=== PATIENT | female | born 1985 | race Caucasian/White ===

== ENCOUNTER 2018-10-15 18:11 | Emergency (ER) | payer OTHER ==
--- NOTE | 2018-10-15 18:34 | UC ---
Abdominal Pain Female HPI - HPI Summary HPI Summary: 32 yo female presents with RLQ pain. She tells me that this morning she woke with sharp RLQ pain and had 1 episode of vomiting. She went back to bed and slept for a few more hours and when she woke up her pain was better, but still had a dull ache in her RLQ. This ache has persisted to now. She has also felt nauseous all day, but did eat lunch and has had no more episodes of vomiting. Had a BM today that was regular - did not change pain. Denies fever, chills, recent illness, SOB, chest pain, dysuria, vaginal bleeding or discharge. - History of Current Complaint Chief Complaint: UCAbdominalPain Stated Complaint: ABDOMINAL PAIN Time Seen by Provider: 10/15/18 18:33 Hx Obtained From: Patient Hx Last Menstrual Period: IUD Onset/Duration: Sudden Onset Severity Initially: Mild Severity Currently: Mild Pain Intensity: 2 Pain Scale Used: 0-10 Numeric Allergies/Adverse Reactions: Allergies Allergy/AdvReac Type Severity Reaction Status Date / Time No Known Allergies Allergy Verified 10/15/18 18:31 Home Medications: Home Medications Levothyroxine TAB* [Synthroid TAB*] 88 mcg PO DAILY PRN 10/15/18 [History Confirmed 10/15/18] Levothyroxine TAB* [Synthroid TAB*] 100 mcg PO DAILY PRN 10/15/18 [History Confirmed 10/15/18] PMH/Surg Hx/FS Hx/Imm Hx Endocrine History: Hypothyroidism - Surgical History Surgical History: Yes Surgery Procedure, Year, and Place: [facility] ARRHY[facility] AGE 19 - Family History Known Family History: Positive: None - Social History Occupation: Employed Full-time Lives: With Family Alcohol Use: None Substance Use Type: None Smoking Status (MU): Never Smoked Tobacco Review of Systems All Other Systems Reviewed And Are Negative: Yes Constitutional: Positive: Negative Skin: Positive: Negative Respiratory: Positive: Negative Cardiovascular: Positive: Negative Gastrointestinal: Positive: Abdominal Pain, Vomiting, Nausea Genitourinary: Positive: Negative Neurovascular: Positive: Negative Neurological: Positive: Negative Psychological: Positive: Negative Physical Exam - Summary Physical Exam Summary: GENERAL: NAD. WDWN. No pain distress. SKIN: No rashes, sores, lesions, or open wounds. NECK: Supple. Nontender. No lymphadenopathy. CHEST: CTAB. No r/r/w. No accessory muscle use. Breathing comfortably and in no distress. CV: RRR. Without m/r/g. Pulses intact. Cap refill <2seconds ABDOMEN: Mild TTP at RLQ. Negative psoas, obturator, rovsing's, and heel strike. Soft. No distention or guarding. No organomegaly. No CVA tenderness. Bowel sounds present. NEURO: Alert. PSYCH: Age appropriate behavior. Triage Information Reviewed: Yes Vital Signs: Initial Vital Signs Temp 98.8 F 10/15/18 18:28 Pulse 68 10/15/18 18:28 Resp 16 10/15/18 18:28 BP 124/79 10/15/18 18:28 Pulse Ox 100 10/15/18 18:28 Laboratory Tests 10/15/18 10/15/18 18:42 18:44 POC Urine Color Yellow POC Urine Clarity Clear POC Urine pH 5.0 POC Ur Specif [place] 1.025 POC Urine Protein Negative POC Ur Glucose (UA) Negative POC Urine Ketones Negative POC Urine Blood Trace-lysed A POC Urine Nitrite Negative POC Urine Bilirubin Negative POC Urine Urobilinogen 0.2 POC U Leukocyte Esteras Negative POC Ur Test Negative Vital Signs Reviewed: Yes Abd Pain Female Course/Dx - Course Course Of Treatment: She is currently afebrile and her pain is improved. She is eating and drinking with no vomiting. I had a long discussion with the pt that her symptoms could represent appendicitis, but I have a low liklihood that this is the case - and discussed the possibility of a CT scan at without contrast that may or may not be able to visualize her appendix. She did not want to go to the ER tonight for a further workup. She elected to monitor her symptoms and if she develops a fever, increased pain, or vomiting will go to the ER. - Differential Dx/Diagnosis Provider Diagnosis: RLQ abdominal pain Discharge - Sign-Out/Discharge Documenting (check all that apply): Patient Departure All imaging exams completed and their final reports reviewed: No Studies - Discharge Plan Condition: Stable Disposition: HOME Referrals: No Primary Care Phys,NOPCP [Primary Care Provider] - Additional Instructions: If you develop a fever, shortness of breath, chest pain, new or worsening symptoms - please call your PCP or go to the ED. 1) Please monitor your abdominal pain. If you develop increased pain, episodes of vomiting, or have any fever - please go directly to the ER - Billing Disposition and Condition Condition: STABLE Disposition: Home
== END 2018-10-15 19:25 | disposition home or self-care (01) ==
LOC: UCEAST 18:11
DX: R10.31 Right lower quadrant pain (principal); E03.9 Hypothyroidism, unspecified
CPT/HCPCS: 81003; 84702; 99201; G0463

== ENCOUNTER 2021-06-13 08:13 | Inpatient (IN) ==
[2021-06-13] MEDS ORDERED: Lactated Ringers 1000 ml BAG 1,000 ML IV ONE (09:23)
[2021-06-13] MEDS ORDERED: Buffered Lidocaine 1% SYRIN 1 ml INTRADERM ONE (09:23)
[2021-06-13] MEDS ORDERED: Lactated Ringers 1000 ml BAG 1,000 ML IV SCH (10:00)
[2021-06-13] MEDS ORDERED: Oxytocin in LR 20 UNITS/1,000 ML BAG IVPB SCH ×2 (10:00→15:00)
[2021-06-13 10:08] LABS: ABS Eosinophils 0.1 10^3/ul (0-0.6); ABS Lymphocytes 1.2 10^3/ul (1.0-4.8); ABS Monocytes 0.6 10^3/ul (0-0.8); ABS Neutrophils 7.7 10^3/ul (1.5-7.7); Eosinophil % 1.3 %; Hematocrit 37 % (35-47); Hemoglobin 12.2 g/dL (12.0-16.0); Lymphocyte % 12.8 %; Mean Corpuscular HGB Conc 33 g/dL (31-36); Mean Corpuscular Hemoglobin 29 pg (27-31); Mean Corpuscular Volume 87 fL (80-97); Mean Platelet Volume 7.4 fL (7.4-10.4); Platelet Count 352 10^3/uL (150-450); Red Blood Count 4.24 10^6 /uL (3.70-4.87); Red Cell Distribution Width 13 % (10-15); White Blood Count 9.7 10^3/uL (3.5-10.8)
[2021-06-13 10:48] LABS: Urine Benzodiazepine Screen None Detected (None Detect); Urine Cannabinoids Screen None Detected (None Detect); Urine Opiates Screen None Detected (None Detect)
[2021-06-13 11:32] LABS: Rapid COVID-19 Molecular Undetected (Undetected)
[2021-06-13] MEDS ORDERED: Witch Hazel PAD JAR TOPICAL PRN (14:49)
[2021-06-13] MEDS ORDERED: Glycerin ADULT 2.4 gm SUPP PR PRN (14:49)
[2021-06-13] MEDS ORDERED: Dibucaine 1% OINT 28.35 GM TUBE PR PRN (14:49)
[2021-06-14 07:35] LABS: ABS Eosinophils 0.2 10^3/ul (0-0.6); ABS Lymphocytes 1.4 10^3/ul (1.0-4.8); ABS Monocytes 0.7 10^3/ul (0-0.8); ABS Neutrophils 9.2 10^3/ul (1.5-7.7); Eosinophil % 1.6 %; Hematocrit 35 % (35-47); Hemoglobin 11.7 g/dL (12.0-16.0); Mean Corpuscular HGB Conc 33 g/dL (31-36); Mean Corpuscular Hemoglobin 29 pg (27-31); Mean Corpuscular Volume 87 fL (80-97); Mean Platelet Volume 7.5 fL (7.4-10.4); Platelet Count 307 10^3/uL (150-450); Red Blood Count 4.02 10^6 /uL (3.70-4.87); Red Cell Distribution Width 13 % (10-15); White Blood Count 11.5 10^3/uL (3.5-10.8)
[2021-06-14 08:25] VITALS: BP 116/65
== END 2021-06-14 15:07 | disposition home or self-care (01) | DRG 807 ==
LOC: MCHOBOUT 08:13 → MCHOB 09:26
PROVIDERS: ADMIT Midwife; ATTEND Midwife